=== PATIENT | male | born 1930 | race Caucasian/White ===

== ENCOUNTER 2016-07-12 13:01 | Day surgery (SDC) | payer MEDICARE, BC ==
[~2016-07-12] VITALS: Ht 175.3 cm; Wt 100.0 kg
[~2016-07-12 13:01] MED LIST: ARICEPT5 MG PO; ASPIRIN325 MG PO; BAYER CHEWABLE81 MG PO; CARAFATE1 G PO; CASODEX50 MG PO; COLACE100 MG PO; COUMADIN5 MG PO; DULCOLAX10 MG/SUPP RC; FLOMAX0.4 MG PO; GLIPIZIDE10 MG PO; HEPARIN SOD5000 U/ML SQ; HUMALOG 30100 UNITS/ SC; HYDROCODONE-APA1 TAB PO; HYTRIN5 MG PO; LEVAQUIN500 MG PO; LEVOXYL175 MCG PO; LYRICA50 MG PO; MILK OF MAGNESI30 ML PO; MIRALAX17 GM PO; NAPROSYN500 MG PO; NARCAN INJ0.4 MG/ML IV; NATURAL VEGETA283 G1; OXYCODONE HCL5 MG OR; OXYCONTIN20 MG PO; PERCOCET 5/3251 TA1 PO; PRAVACHOL40 MG PO; PRILOSEC20 MG PO; PROTONIX40 MG PO; SENOKOT-S TABLE1 TAB PO; SYNTHROID50 MCG PO; TYLENOL 325 MG325 MG PO; ULTRAM50 MG PO; VALIUM10 MG; VITAMIN B-1000 MCG/M PO; VITAMIN D31000 UNIT PO; VITAMIN D3400 UNI1 PO; ZANTAC150 MG PO; ZOCOR20 MG PO; ZOCOR40 MG PO; ZOFRAN ODT4 MG/UDTAB PO; ZOLOFT25 MG PO
[2016-07-12 14:46] VITALS: BP 121/68; Ht 175.3 cm; Wt 100.0 kg
--- NOTE | 2016-07-12 15:27 | NUR ---
1525 PROCEDURE TOLERATED WELL. PB 139/72 69 20 98% SAT. WATER SERVED. RELEASED IN .
--- NOTE | 2016-07-14 10:44 | PRO ---
PATIENT:PATRICK HOLDEN MEDICAL RECORD: [id number] : 34 LOCATION:[facility] ADMISSION DATE: 07/12/16 PROCEDURE PERFORMED BY: NESTOR REGAN MD DATE OF PROCEDURE: 07/12/2016 Mr. Holden is an 86-year-old male who is known to this service and has presented for his second lumbar epidural steroid injection. Mr. Holden has had an MRI, which demonstrated degenerative joint disease and herniated disc at 4-5 with foraminal nerve root contracts about the facet in the right foraminal space correlated with a right L4 radiculopathy. The patient relates with his previous lumbar epidural steroid injection done 1 week ago at L4-L5 that his pain was relieved for about 3 days, but then returned. The patient relates that he had marked improvement, but the pain returns. The patient is returning today as per his appointment for repeat lumbar epidural steroid injection. The patient relates today that his pain is about 8/10. The patient requesting lumbar epidural steroid injection and hopefully increased duration of action for pain relief as opposed to his previous LESI. Again, MRI was reviewed as per old record. Procedure was discussed with the patient extensively including risk, benefit of infection, damage to underlying structures and headache. The patient understands risks and accepts, consents form signed. The patient elects to proceed with procedure. It should be noted that the patient is currently on no anticoagulation therapy at this time. The patient was placed in sitting position, Betadine prep and drape. A skin wheal of 1% lidocaine was raised over the L4-L5 interspace, under sterile conditions, L4-L5 interspace was then located. The epidural space was located with a 17-gauge Tuohy needle with loss of resistance technique. A total solution of 0.125% bupivacaine with 80 mg of Depo-Medrol ____ 6 mL was instilled into the epidural space at L4-L5 interspace. The patient related that his pain was almost zero after injection of local anesthetic and steroids. It should also be noted that the patient was not feeling well today. Blood sugar was checked and blister of 146. The patient is known to be diabetic. We discussed the issues with steroid injection. The patient's vital signs were also stable today with a heart rate of 76 and his blood pressure within normal limits and temperature was 97.8. The patient is to go home and rest this afternoon. The patient is to presents in 1 week for his third lumbar epidural steroid injection. TRANSINT:[id number] Voice Confirmation ID: [id number] DOCUMENT ID: [id number] NESTOR REGAN MD at 1044 CC: [id number] DICTATION DATE: 07/12/16 1517 CV RN: 07/12/16 2359 [facility] [place] 07/12/[address] [address]
== END 2016-07-12 15:27 | disposition home or self-care (01) ==
LOC: D.OPS 13:01
DX: M47.896 Other spondylosis, lumbar region (principal); M51.26 Other intervertebral disc displacement, lumbar region

== ENCOUNTER 2016-07-12 16:08 | Emergency (ER) | payer MEDICARE, BC ==
[2016-07-12 18:16] LABS: BASOPHILS 0.1 % (0.0-2.0); EOSINOPHILS 1.1 % (0-7); HEMATOCRIT 44.6 % (42.0-54.0); HEMOGLOBIN 14.8 g/dL (13.5-17.5); IMMATURE GRANULOCYTES 0.3 % (0-5); LYMPHOCYTES 14.9 % (15-50); MCH 30.2 pg (26.0-34.0); MCHC 33.2 g/dL (31.0-37.0); MEAN PLATELET VOLUME 9.8 fL (7.4-10.4); MONOCYTES 10.1 % (2-11); NEUTROPHILS 73.5 % (40-80); PLATELET COUNT 206 10x3/uL (130-400); RDW 12.3 % (11.5-14.5); WBC 9.8 10x3/uL (4.8-10.8)
[2016-07-12 18:27] LABS: ANION GAP 11.8 mmol/L (8-16); CALCIUM 9.4 mg/dL (8.5-10.1); CARBON DIOXIDE 29.5 mmol/L (21.0-32.0); CREATININE - SERUM 1.6 mg/dL (0.6-1.3); POTASSIUM - SERUM 4.3 mmol/L (3.5-5.1)
== END 2016-07-12 20:05 | disposition home or self-care (01) ==
LOC: D.ER 16:08
PROVIDERS: Emergency Medicine Emergency Medical Services
DX: R20.8 Other disturbances of skin sensation (principal); C61 Malignant neoplasm of prostate; K59.00 Constipation, unspecified; R10.9 Unspecified abdominal pain; E11.9 Type 2 diabetes mellitus without complications; F03.90 Unspecified dementia, unspecified severity, without behavioral disturbance, psychotic disturbance, mood disturbance, and anxiety; E78.5 Hyperlipidemia, unspecified; E03.9 Hypothyroidism, unspecified

== ENCOUNTER 2016-07-19 12:14 | Day surgery (SDC) | payer MEDICARE, BC ==
--- NOTE | 2016-07-19 15:24 | NUR ---
1449 PROCEDURE COMPLETE. PT SATINDER WELL. BANDAIDS APPLIED TO INJECTION SITES. BP 109/65, HR 76, RR 18, SAT 96% 1500 PT STATES FEELING GOOD. VS- BP 110/71, HR 75,RR 18, SAT 96%. 1503 PT IS UP AMBULATING IN ROOM AND TALKING WITH DR VELEZ.
--- NOTE | 2016-07-19 15:46 | NUR ---
1535 PT DENIES C/O, STATES FEELS READY FOR DC. REVIEWED DC INSTRUCTIONS WITH PT WHO VERBALIZES UNDERSTANDING. PT ESCOTED TO PRIVATE AUTO VIA WC BY STAFF WITH DRIVING HIM HOME.
== END 2016-07-19 15:35 | disposition home or self-care (01) ==
LOC: D.OPS 12:14
DX: M48.06 Spinal stenosis, lumbar region (principal); M54.16 Radiculopathy, lumbar region; M53.3 Sacrococcygeal disorders, not elsewhere classified

== ENCOUNTER 2017-02-24 12:20 | Inpatient (IN) | payer MEDICARE, BC ==
[~2017-02-24] VITALS: Ht 175.3 cm; Wt 105.2 kg
[~2017-02-24 12:20] MED LIST changes: -GLIPIZIDE10 MG PO; +GLUCOTROL ER2.5 MG PO; -LYRICA50 MG PO; +LYRICA75 MG PO
[2017-02-24 12:57] LABS: BASOPHILS 0.2 % (0-2); HEMATOCRIT 39.3 % (42.0-54.0); HEMOGLOBIN 13.4 g/dL (13.5-17.5); IMMATURE GRANULOCYTES 0.3 % (0-5); LYMPHOCYTES 27.5 % (15-50); MCH 29.5 pg (26.0-34.0); MCHC 34.1 g/dL (31.0-37.0); MCV 86.4 fL (80.0-100.0); MEAN PLATELET VOLUME 9.3 fL (7.4-10.4); MONOCYTES 12.1 % (2-11); NEUTROPHILS 57.9 % (40-80); PLATELET COUNT 183 10x3/uL (130-400); RBC 4.55 10x6/uL (4.20-6.10); RDW 12.9 % (11.5-14.5); WBC 5.9 10x3/uL (4.8-10.8)
[2017-02-24 13:11] LABS: ALBUMIN 3.6 g/dL (3.4-5.0); ALKALINE PHOSPHATASE 76 U/L (46-116); ALT (SGPT) 28 U/L (10-68); BILIRUBIN - TOTAL 0.27 mg/dL (0.2-1.3); CALC OSMOLALITY 284 mosm/kg (275-300); CALCIUM 8.8 mg/dL (8.5-10.1); CARBON DIOXIDE 26.3 mmol/L (21.0-32.0); CHLORIDE - SERUM 104 mmol/L (98-107); CREATININE - SERUM 1.6 mg/dL (0.6-1.3); POTASSIUM - SERUM 3.9 mmol/L (3.5-5.1); PROTEIN - SERUM 7.5 g/dL (6.4-8.2); SODIUM 139 mmol/L (136-145); UREA NITROGEN 30 mg/dL (7-18); eGFR NON AFRICAN AMERICAN 44 mL/min (90-120)
[2017-02-24 13:12] LABS: GLUCOSE 108 mg/dL (74-106)
[2017-02-24 14:03] LABS: CKMB 1.2 U/L (0.0-3.6); CREATINE KINASE 127 UL (21-232); TROPONIN-I < 0.017 ng/mL (0.000-0.060)
--- NOTE | 2017-02-24 16:13 | NUR ---
TRANSFER FROM ER BY W/C. DENISINTED TO ROOM. CALL LIGHT IN REACH. WILL CONT. PLAN OF CARE.
[2017-02-24 16:25] VITALS: BP 149/77; BMI 34.3
[2017-02-24] MEDS ORDERED: SEROQUEL25 MG PO (16:36)
[2017-02-24] MEDS ORDERED: ZOSTRIX HP 0.0730 GM TOPICAL (16:38)
[2017-02-24] MEDS ORDERED: ELIQUIS5 MG PO (16:40)
[2017-02-24] MEDS ORDERED: LIPITOR20 MG PO (16:42)
[2017-02-24] MEDS ORDERED: MULTIPLE VITAMI1 TA1 PO (16:43)
[2017-02-24] MEDS ORDERED: MIRALAX17 GM PO (16:46)
[2017-02-24] MEDS ORDERED: CASODEX50 MG PO (16:47)
[2017-02-24 18:46] LABS: CKMB 1.1 U/L (0.0-3.6); CREATINE KINASE 109 UL (21-232); TROPONIN-I < 0.017 ng/mL (0.000-0.060)
[2017-02-24 19:00] VITALS: BP 112/64
[2017-02-25 02:08] LABS: CREATINE KINASE 101 UL (21-232)
[2017-02-25 02:11] LABS: TROPONIN-I < 0.017 ng/mL (0.000-0.060)
[2017-02-25 04:00] VITALS: BP 104/72
[2017-02-25 07:14] LABS: BASOPHILS 0.2 % (0-2); EOSINOPHILS 4.8 % (0-7); HEMATOCRIT 38.2 % (42.0-54.0); HEMOGLOBIN 12.7 g/dL (13.5-17.5); IMMATURE GRANULOCYTES 0.2 % (0-5); LYMPHOCYTES 28.9 % (15-50); MCH 29.1 pg (26.0-34.0); MCHC 33.2 g/dL (31.0-37.0); MCV 87.4 fL (80.0-100.0); MEAN PLATELET VOLUME 9.5 fL (7.4-10.4); MONOCYTES 12.9 % (2-11); PLATELET COUNT 188 10x3/uL (130-400); RBC 4.37 10x6/uL (4.20-6.10); RDW 13.1 % (11.5-14.5)
[2017-02-25 07:52] LABS: ALBUMIN 3.2 g/dL (3.4-5.0); ALKALINE PHOSPHATASE 82 U/L (46-116); ALT (SGPT) 92 U/L (10-68); AMYLASE - SERUM 59 U/L (25-115); CALC OSMOLALITY 282 mosm/kg (275-300); CALCIUM 8.7 mg/dL (8.5-10.1); CARBON DIOXIDE 28.7 mmol/L (21.0-32.0); CHLORIDE - SERUM 105 mmol/L (98-107); CKMB 0.8 U/L (0.0-3.6); CREATINE KINASE 90 UL (21-232); CREATININE - SERUM 1.4 mg/dL (0.6-1.3); GLUCOSE 120 mg/dL (74-106); LIPASE 278 U/L (73-393); MAGNESIUM - SERUM 2.3 mg/dL (1.8-2.4); PHOSPHOROUS 4.3 mg/dL (2.5-4.9); POTASSIUM - SERUM 4.3 mmol/L (3.5-5.1); PROTEIN - SERUM 6.6 g/dL (6.4-8.2); SODIUM 139 mmol/L (136-145); TROPONIN-I < 0.017 ng/mL (0.000-0.060); UREA NITROGEN 25 mg/dL (7-18); eGFR NON AFRICAN AMERICAN 51 mL/min (90-120)
[2017-02-25 09:19] VITALS: BP 123/52
--- NOTE | 2017-02-25 09:48 | NUR ---
RESP UL ON 02 2L NC. IV PATENT. TELEMETRY SR WITH OCC PVCS. CALL LIGHT IN REACH. WILL CONT. PLAN OF CARE.
[2017-02-25 11:49] VITALS: BP 121/64
--- NOTE | 2017-02-25 11:53 | HP ---
PATIENT: PATRICK BARTH MEDICAL RECORD: [id number] ACCOUNT: [id number] LOCATION:[address] : 32 ADMISSION DATE: 02/24/17 HISTORY AND PHYSICAL EXAMINATION HISTORY OF PRESENT ILLNESS: An 86-year-old male presented to the Emergency Room with 4 days of epigastric abdominal pain, severe radiating up to his chest. Denies fever or chills. Denies nausea or vomiting. Reports normal bowel movements. PAST MEDICAL HISTORY: Significant for cardiovascular disease, extensive vascular disease, chronic constipation, previous bowel obstructions with multiple abdominal surgeries, remote CVA, coagulopathy, hyperlipidemia, diabetes mellitus type 2, hypothyroidism and prostate cancer. CURRENT MEDICATIONS: Casodex 50 mg daily, donepezil 5 mg daily, Flomax 0.4 mg at bedtime. Eliquis 5 mg b.i.d., Lipitor 20 mg at bedtime, terazosin 5 mg daily, aspirin 81 mg daily, Lyrica 75 mg b.i.d., Seroquel 25 mg daily, pantoprazole 40 mg b.i.d., MiraLax 17 grams p.o. daily, glipizide ER 2.5 mg daily, levothyroxine 175 mcg daily, Zostrix topical, vitamin D3 2000 units p.o. q.h.s., vitamin B12 1000 mcg daily , and multivitamin daily. ALLERGIES: PENICILLIN, SULFA, LIDOCAINE, PROCAINE, MEPERIDINE AND BENADRYL. REVIEW OF SYSTEMS: GENERAL: No acute change in weight or appetite. HEENT: No cephalgia, visual changes, tinnitus, epistaxis or dysphagia. CARDIOVASCULAR: Atypical chest pain reportedly radiates from his epigastric pain and pressure. Denies diaphoresis, denies shortness of breath, denies palpitations. PULMONARY: Denies hemoptysis, denies night sweats. GASTROINTESTINAL: Moderate to severe epigastric pain, tenderness is noted above, multiple abdominal surgeries, obstructions, adhesiolysis, reports normal bowel movements. Denies any nausea or vomiting. GENITOURINARY: Denies dysuria. History of prostate cancer on suppressive therapy with Casodex. ENDOCRINE: Denies polyuria, polydipsia, or polyphagia. MUSCULOSKELETAL: No acute changes. Of note, the patient primarily is a patient of Dr. Diaz, but [facility] PHYSICAL EXAMINATION: VITAL SIGNS: Temp 97.9, blood pressure 145/77, heart rate 79, respirations 20, O2 sats 95% room air. GENERAL: Alert and oriented, no present distress at rest. HEENT: Normocephalic, atraumatic. Eyes: Pupils equal, round, reactive. Ears: Canals patent. TMs are intact. Nose: Nares patent without drainage. Throat: No erythema, no exudates. NECK: Supple. No lymphadenopathy, no JVD. HEART: Regular rate and rhythm. No S3, S4, no rub. LUNGS: Clear to auscultation bilaterally. Breathing is nonlabored. ABDOMEN: Soft, mildly obese, moderate to severe epigastric tenderness with guarding, multiple scars from previous abdominal surgeries. Small ventral hernia. EXTREMITIES: Present times 4, nontender. NEUROLOGIC: No appreciable focal deficits. HISTORY AND PHYSICAL [id number] PATRICK BARTH IMAGING: Chest x-ray, no acute changes. LABORATORY DATA: Show a CBC: White count 5.9, hemoglobin 13.4, hematocrit 39.3, platelets 183. Chemistry: Sodium 139, potassium 3.9, chloride 104, bicarb 26.3, BUN 30, creatinine 1.6, glucose 108, calcium is 8.8. AST is 22, ALT is 28. CK 127, CK-MB 1.2, troponin less than 0.017. Albumin 3.6. ASSESSMENT AND PLAN: 1. Moderate to severe epigastric pain with guarding, multiple risk factors, prior obstructions, history of coagulopathy. We will obtain CT of the abdomen with oral contrast only due to renal function. 2. Cardiovascular disease. Psycho cardiac enzymes times 3. First set negative. Symptoms are atypical for cardiovascular disease, but again with multiple risk factors. 3. Gastroesophageal reflux disease. Continue home medications. 4. Hypothyroidism. Continue current medications. 5. Diabetes. We will hold low dose Glucotrol. All studies are pending. Cover with low resistant sliding scale insulin. 6. Prostate cancer. Continue Casodex. 7. EKG reviewed, normal sinus rhythm, rate 74, nonspecific T-wave changes. Cardiology consulted to the ER, supportive care. TRANSINT:[id number] Voice Confirmation ID: [id number] DOCUMENT ID: [id number] ADITYA ROSE DO at 1153 CC: [id number] DICTATION DATE: 02/24/171825 JOURNEYMAN OPERATOR ASSISTANT: 02/24/171926 ADM IN [facility] [address] [id number]
[2017-02-25 15:44] VITALS: BP 124/70
[2017-02-25 20:00] VITALS: BP 117/62
--- NOTE | 2017-02-25 20:00 | NUR ---
PT RESTING IN BED. ALERT/ORIENTED WITH O2 @ 2L/NC. SR PER TELEMETRY. LEFT WRIST PIV WITH NS @ 75ML/HR. PT TEACHING ON NPO AFTER MIDNIGHT FOR US OF ABDOMEN IN AM. SEE ASSESSMENT. CPOC.
--- NOTE | 2017-02-25 21:14 | NUR ---
BEDTIME MEDS GIVEN.
[2017-02-26 01:15] VITALS: BP 115/62
[2017-02-26 04:30] VITALS: BP 123/72
[2017-02-26 04:51] LABS: BASOPHILS 0.1 % (0-2); EOSINOPHILS 4.8 % (0-7); HEMATOCRIT 38.1 % (42.0-54.0); HEMOGLOBIN 12.8 g/dL (13.5-17.5); IMMATURE GRANULOCYTES 0.3 % (0-5); LYMPHOCYTES 27.3 % (15-50); MCH 29.4 pg (26.0-34.0); MCHC 33.6 g/dL (31.0-37.0); MCV 87.6 fL (80.0-100.0); MEAN PLATELET VOLUME 9.4 fL (7.4-10.4); MONOCYTES 11.8 % (2-11); NEUTROPHILS 55.7 % (40-80); PLATELET COUNT 206 10x3/uL (130-400); RBC 4.35 10x6/uL (4.20-6.10); RDW 12.8 % (11.5-14.5); WBC 6.7 10x3/uL (4.8-10.8)
[2017-02-26 05:16] LABS: ALBUMIN 3.2 g/dL (3.4-5.0); ANION GAP 10.4 mmol/L (8-16); BILIRUBIN - TOTAL 0.36 mg/dL (0.2-1.3); CALCIUM 8.7 mg/dL (8.5-10.1); CARBON DIOXIDE 27.5 mmol/L (21.0-32.0); CREATININE - SERUM 1.4 mg/dL (0.6-1.3); POTASSIUM - SERUM 3.9 mmol/L (3.5-5.1); PROTEIN - SERUM 6.7 g/dL (6.4-8.2)
[2017-02-26] MEDS ORDERED: ZOSTRIX HP 0.0730 GM TOPICAL (06:23)
[2017-02-26 10:33] VITALS: BP 153/82
[2017-02-26 12:00] VITALS: BP 118/71
[2017-02-26 14:36] VITALS: Ht 175.3 cm; Wt 105.2 kg
[2017-02-26 17:43] VITALS: BP 120/68
[2017-02-26 20:00] VITALS: BP 127/66
--- NOTE | 2017-02-26 20:00 | NUR ---
PT RESTING IN BED WITH NO DISTRESS. ALERT/ORIENTED. NS @ 75ML/HR INFUSING TO LEFT WRIST. O2 @ 2L/NC WITH NONLABORED RESPIRATIONS. SR PER TELEMETRY. SEE ASSESSMENT. CPOC.
--- NOTE | 2017-02-27 04:53 | NUR ---
AM LABWORK DRAWN. PT REMAINS NPO FOR EGD THIS AM. ALERT/ORIENTED. DENIES ANY NEEDS. CPOC.
[2017-02-27 05:52] LABS: BASOPHILS 0.1 % (0-2); EOSINOPHILS 5.1 % (0-7); HEMATOCRIT 37.1 % (42.0-54.0); HEMOGLOBIN 12.6 g/dL (13.5-17.5); IMMATURE GRANULOCYTES 0.1 % (0-5); MCH 29.7 pg (26.0-34.0); MCV 87.5 fL (80.0-100.0); MEAN PLATELET VOLUME 9.4 fL (7.4-10.4); MONOCYTES 10.2 % (2-11); NEUTROPHILS 56.5 % (40-80); PLATELET COUNT 206 10x3/uL (130-400); RBC 4.24 10x6/uL (4.20-6.10); RDW 12.8 % (11.5-14.5); WBC 6.7 10x3/uL (4.8-10.8)
[2017-02-27 06:19] LABS: ALBUMIN 3.2 g/dL (3.4-5.0); ANION GAP 14.1 mmol/L (8-16); BILIRUBIN - TOTAL 0.4 mg/dL (0.2-1.3); CALCIUM 8.6 mg/dL (8.5-10.1); CARBON DIOXIDE 24.7 mmol/L (21.0-32.0); CREATININE - SERUM 1.4 mg/dL (0.6-1.3); POTASSIUM - SERUM 3.8 mmol/L (3.5-5.1); PROTEIN - SERUM 6.6 g/dL (6.4-8.2)
--- NOTE | 2017-02-27 07:50 | NUR ---
RESTING QUIETLY RESP UNLABORED CPAP INTACT NAD NOTED
[2017-02-27 09:25] VITALS: BP 119/56
--- NOTE | 2017-02-27 11:43 | NUR ---
FSBS 124
[2017-02-27 16:29] VITALS: BP 130/71
--- NOTE | 2017-02-27 17:25 | NUR ---
FBS 116
[2017-02-27 17:59] VITALS: BP 124/97
[2017-02-27 20:00] VITALS: BP 124/63
[2017-02-28 01:10] VITALS: BP 119/63
[2017-02-28] MEDS ORDERED: CARAFATE1 G PO (07:06)
[2017-02-28 08:32] VITALS: BP 104/69
--- NOTE | 2017-02-28 10:44 | NUR ---
Patient Name: PATRICK BARTH Admission Status: ER Accout number: [id number] Admission Date: 02-27-2017 : 1930 Admission Diagnosis: Attending: ADITYA ROSE Current LOS: 1 Anticipated DC Date: 02-28-2017 Planned Disposition: Home Primary Insurance: MEDICARE A & B Discharge Planning Comments: * Is the patient Alert and Oriented? Yes 0 * How many steps to enter\exit or inside your home? NONE 0 * PCP DR. SMITH 0 * Pharmacy [facility] ([place], [place] 0 * Preadmission Environment Home with Family 0 * ADLs Independent 0 * Equipment Cane Glucometer Walker 0 * Other Equipment [facility] - MEDICAL EQUIPMENT PROVIDER 0 * List name and contact numbers for known caregivers / representatives who currently or will assist patient after discharge: WILTON ORELLANA, SPOUSE, 0 * Community resources currently utilized None 0 * Please name any agencies selected above. NONE 0 * Additional services required to return to the preadmission environment? No 0 * Can the patient safely return to the preadmission environment? Yes 0 * Has this patient been hospitalized within the prior 30 days at any hospital? No 0 CM MET WITH PT IN ROOM TO DISCUSS DISCHARGE PLANNING AND NEEDS. PT REPORTS LIVING AT HOME INDEPENDENTLY WITH HIS . PT HAS CANE, GLUCOMET[facility] AND NO OUTSIDE SERVICES ASSISTING IN THE HOME. CM DISCUSSED AVAILABILITY OF HOME HEALTH, REHAB SERVICES AND MEDICAL EQUIPMENT. PT DENIES DISCHARGE NEEDS, REPORTS HIS IS ON THE WAY TO PICK HIM UP FOR DISCHARGE HOME TODAY. USED EQUIPMENT SALES REPRESENTATIVE NOTIFIED. Palliative Care Nurse Practitioner: Chato Olson
--- NOTE | 2017-02-28 11:52 | NUR ---
IV AND TELEMETRY DCD. DC PLANS GIVEN. UNDERSTANDING VOICED. ESCORTED TO CAR BY W/C.
== END 2017-02-28 11:53 | disposition home or self-care (01) | DRG 392 ==
LOC: D.ER 12:20 → OBSVTIME 14:48 → D.M2 14:48
PROVIDERS: Emergency Medicine; Family Medicine; Internal Medicine Gastroenterology; ADMIT Family Medicine
PROC: 0DB68ZX Excision of Stomach, Via Natural or Artificial Opening Endoscopic, Diagnostic (ICD-10-PCS; 2017-02-27)
PROC: 0DB58ZX Excision of Esophagus, Via Natural or Artificial Opening Endoscopic, Diagnostic (ICD-10-PCS; principal; 2017-02-27 15:30)
DX: K21.9 Gastro-esophageal reflux disease without esophagitis (principal); K44.9 Diaphragmatic hernia without obstruction or gangrene; K29.70 Gastritis, unspecified, without bleeding; E03.9 Hypothyroidism, unspecified; E11.9 Type 2 diabetes mellitus without complications; Z79.4 Long term (current) use of insulin; K59.09 Other constipation; Z86.73 Personal history of transient ischemic attack (TIA), and cerebral infarction without residual deficits; E78.5 Hyperlipidemia, unspecified

== ENCOUNTER → 2017-03-20 13:25 | Outpatient (CLI) | payer MEDICARE, BC ==
[2017-02-26 14:36] VITALS: BMI 34.2
[~2017-03-20 13:25] MED LIST changes: +ELIQUIS5 MG PO; +LIPITOR20 MG PO; +MULTIPLE VITAMI1 TA1 PO; +SEROQUEL25 MG PO; +ZOSTRIX HP 0.0730 GM TOPICAL
== END | disposition home or self-care (01) ==
LOC: D.CT 13:25
DX: R07.9 Chest pain, unspecified (principal)

== ENCOUNTER 2017-04-11 10:14 | Day surgery (SDC) | payer MEDICARE, BC ==
[2017-04-11 12:58] VITALS: BP 156/89; BMI 39.2
--- NOTE | 2017-04-11 13:07 | NUR ---
1030-PATIENT TO ROOM, DR VELEZ PAGED. 1045-PATIENT NOTIFIED DR VELEZ WILL BE HERE IN ABOUT 30 MINUTES. 1120-DR VELEZ HERE. HISTORY AND PHYSICAL COMPLETED. PROCEDURE, RISKS AND BENEFITS REVIEWED AND OTHER TREATMENT OPTIONS. PATIENT ELECTS TO PROCEED. 1150-TIME OUT. 1154-START 1155-END 1156-BANDAID TO INJECTION SITE. 1215-DISCHARGE INSTRUCTIONS REVIEWED. PATIENT AMBULATES WITH STEADY GAIT. STATES HELPING ALREADY. 1220-ESCORTED AMBULATORY PER REQUEST TO VEHICLE- IS DRIVING.
== END 2017-04-11 12:20 | disposition home or self-care (01) ==
LOC: D.OPS 10:14
DX: M54.16 Radiculopathy, lumbar region (principal); M51.36 Other intervertebral disc degeneration, lumbar region

== ENCOUNTER 2018-10-12 13:20 | Inpatient (IN) | payer MEDICARE, BC ==
[~2018-10-12] VITALS: Ht 175.3 cm; Wt 109.0 kg
[2018-10-12 00:16] VITALS: BP 127/69
[2018-10-12] MEDS ORDERED: ALBUTEROL SULF8.5 GM INH (13:28)
[2018-10-12] MEDS ORDERED: VITAMIN D31000 UNIT PO (13:29)
[2018-10-12] MEDS ORDERED: OPTIVE SENSITI1 EACH EACH EYE (13:29)
[2018-10-12] MEDS ORDERED: FLUTICASONE PRO16 GM IH (13:30)
[2018-10-12] MEDS ORDERED: HYDROCODON-ACE1 EAC7 PO (13:30)
[2018-10-12] MEDS ORDERED: ZOLOFT25 MG PO (13:31)
[2018-10-12 14:15] LABS: BASOPHILS 0.1 % (0-2); EOSINOPHILS 2.8 % (0-7); HEMATOCRIT 41.2 % (42.0-54.0); HEMOGLOBIN 14.1 g/dL (13.5-17.5); IMMATURE GRANULOCYTES 0.2 % (0-5); LYMPHOCYTES 27.8 % (15-50); MCH 30.2 pg (26.0-34.0); MCHC 34.2 g/dL (31.0-37.0); MCV 88.2 fL (80.0-100.0); MEAN PLATELET VOLUME 9.3 fL (7.4-10.4); MONOCYTES 10.8 % (2-11); NEUTROPHILS 58.3 % (40-80); PLATELET COUNT 220 10x3/uL (130-400); RBC 4.67 10x6/uL (4.20-6.10); WBC 8.4 10x3/uL (4.8-10.8)
[2018-10-12 14:22] LABS: ALBUMIN 3.6 g/dL (3.4-5.0); ALKALINE PHOSPHATASE 70 U/L (46-116); ALT (SGPT) 34 U/L (10-68); BILIRUBIN - TOTAL 0.31 mg/dL (0.2-1.3); CALC OSMOLALITY 280 mosm/kg (275-300); CALCIUM 9.2 mg/dL (8.5-10.1); CARBON DIOXIDE 27.9 mmol/L (21.0-32.0); CHLORIDE - SERUM 102 mmol/L (98-107); CREATININE - SERUM 1.3 mg/dL (0.6-1.3); GLUCOSE 103 mg/dL (74-106); POTASSIUM - SERUM 4.1 mmol/L (3.5-5.1); PROTEIN - SERUM 7.4 g/dL (6.4-8.2); SODIUM 138 mmol/L (136-145); UREA NITROGEN 26 mg/dL (7-18); eGFR NON AFRICAN AMERICAN 55 mL/min (90-120)
[2018-10-12 14:25] LABS: APTT 34.1 SECONDS (22.8-39.4); INR 1.03 (0.85-1.17)
[2018-10-12 14:32] LABS: CKMB 1.1 U/L (0.0-3.6); CREATINE KINASE 102 UL (21-232); MAGNESIUM - SERUM 2.3 mg/dL (1.8-2.4); TROPONIN-I < 0.017 ng/mL (0.000-0.060)
[2018-10-12 15:24] LABS: AMYLASE - SERUM 66 U/L (25-115); LIPASE 270 U/L (73-393)
[2018-10-12 16:46] VITALS: BP 117/43
[2018-10-12 17:21] VITALS: BP 109/51
[2018-10-12 17:48] VITALS: BMI 35.2
--- NOTE | 2018-10-12 17:56 | NUR ---
ASSESSMENT COMPLETE RESP UNLABORED AAOX4 SALINE LOCK LAC INTACT WITH OCCLUSIVE DRSG SITE FREE OF REDNESS OR EDEMA PT DENIES ANY DISCOMFORT AT THIS TIME
--- NOTE | 2018-10-12 19:41 | NUR ---
RECEIVED REPORT, WILL ASSUME CARE OF PT, PT IS WATCHING TV, DENIES ANY NEEDS, BED IS LOW, SRX2, CALL LIGHT IN REACH, WILL CONTINUE PLAN OF CARE
[2018-10-13] VITALS: BP 104/58
--- NOTE | 2018-10-13 01:52 | NUR ---
PT SLEEPING NO DISTRESS NOTICE, CALL LIGHT IN REACH, WILL CONTINUE PLAN OF CARE
--- NOTE | 2018-10-13 02:01 | NUR ---
I have reviewed this patient and I concur with the Shift Assessment completed by the Licensed Practical Nurse today this shift.
[2018-10-13 03:33] LABS: BASOPHILS 0.2 % (0-2); EOSINOPHILS 5.2 % (0-7); HEMATOCRIT 39.1 % (42.0-54.0); IMMATURE GRANULOCYTES 0.3 % (0-5); LYMPHOCYTES 32.6 % (15-50); MCH 29.5 pg (26.0-34.0); MCHC 33.2 g/dL (31.0-37.0); MCV 88.9 fL (80.0-100.0); MEAN PLATELET VOLUME 9.2 fL (7.4-10.4); MONOCYTES 14.9 % (2-11); NEUTROPHILS 46.8 % (40-80); PLATELET COUNT 184 10x3/uL (130-400); RDW 12.9 % (11.5-14.5)
[2018-10-13 03:39] LABS: WBC 5.8 10x3/uL (4.8-10.8)
[2018-10-13 04:00] VITALS: BP 109/71
[2018-10-13 04:07] LABS: ALBUMIN 3.1 g/dL (3.4-5.0); ALKALINE PHOSPHATASE 81 U/L (46-116); BILIRUBIN - TOTAL 0.37 mg/dL (0.2-1.3); CALC OSMOLALITY 280 mosm/kg (275-300); CALCIUM 8.2 mg/dL (8.5-10.1); CARBON DIOXIDE 25.4 mmol/L (21.0-32.0); CHLORIDE - SERUM 104 mmol/L (98-107); CREATININE - SERUM 1.4 mg/dL (0.6-1.3); GLUCOSE 129 mg/dL (74-106); LIPASE 1014 U/L (73-393); POTASSIUM - SERUM 4.2 mmol/L (3.5-5.1); PROTEIN - SERUM 6.6 g/dL (6.4-8.2); SODIUM 138 mmol/L (136-145); UREA NITROGEN 21 mg/dL (7-18); eGFR NON AFRICAN AMERICAN 51 mL/min (90-120)
[2018-10-13 04:09] LABS: ALT (SGPT) 95 U/L (10-68); AMYLASE - SERUM 153 U/L (25-115); TROPONIN-I < 0.017 ng/mL (0.000-0.060)
[2018-10-13] MEDS ORDERED: SYNTHROID50 MCG PO (06:50)
--- NOTE | 2018-10-13 07:15 | NUR ---
ASSESSMENT COMPLETED. ALERT AND ORIENTED.TELEMERTY SHOWS SR. WITH OCC PVCS. LEFT AC SL. ON ROOM AIR. DENIES ANY NEEDS. WILL MONITOR
[2018-10-13 08:20] VITALS: BP 109/61
[2018-10-13 12:10] VITALS: BP 115/68
--- NOTE | 2018-10-13 12:39 | NUR ---
PT SITTING ON SIDE OF BED FOR DIET. DENIES ANY NEEDS. WILL MONITOR
--- NOTE | 2018-10-13 14:40 | NUR ---
I have reviewed this patient and I concur with the Shift Assessment completed by the Licensed Practical Nurse today this shift.
[2018-10-13 14:52] VITALS: BP 112/58
--- NOTE | 2018-10-13 18:15 | NUR ---
UP TO BR. STATES HE HAD A SM BM AFTER DULCOLAX GIVEN. TELEMERTY SHOWSSR. WILL MONITOR
[2018-10-13 20:38] VITALS: BP 129/63
[2018-10-14 01:51] VITALS: BP 114/73
[2018-10-14 05:41] VITALS: BP 121/71
[2018-10-14 06:51] LABS: BASOPHILS 0.3 % (0-2); EOSINOPHILS 5.7 % (0-7); HEMATOCRIT 37.6 % (42.0-54.0); HEMOGLOBIN 12.7 g/dL (13.5-17.5); IMMATURE GRANULOCYTES 0.2 % (0-5); LYMPHOCYTES 31.2 % (15-50); MCH 29.8 pg (26.0-34.0); MCHC 33.8 g/dL (31.0-37.0); MCV 88.3 fL (80.0-100.0); MEAN PLATELET VOLUME 9.4 fL (7.4-10.4); MONOCYTES 12.2 % (2-11); NEUTROPHILS 50.4 % (40-80); PLATELET COUNT 189 10x3/uL (130-400); RBC 4.26 10x6/uL (4.20-6.10); RDW 12.9 % (11.5-14.5); WBC 6.1 10x3/uL (4.8-10.8)
[2018-10-14 07:13] LABS: ALBUMIN 3.1 g/dL (3.4-5.0); ANION GAP 11.2 mmol/L (8-16); BILIRUBIN - DIRECT 0.11 mg/dL (0.00-0.30); BILIRUBIN - INDIRECT 0.26 mg/dL (0.00-1.00); BILIRUBIN - TOTAL 0.37 mg/dL (0.2-1.3); CALCIUM 8.5 mg/dL (8.5-10.1); CARBON DIOXIDE 26.7 mmol/L (21.0-32.0); CREATININE - SERUM 1.3 mg/dL (0.6-1.3); MAGNESIUM - SERUM 2.3 mg/dL (1.8-2.4); POTASSIUM - SERUM 3.9 mmol/L (3.5-5.1); PROTEIN - SERUM 6.5 g/dL (6.4-8.2)
[2018-10-14 08:18] VITALS: BP 119/78
--- NOTE | 2018-10-14 09:38 | NUR ---
ASSESSMENT DONE. DENIES NEEDS
--- NOTE | 2018-10-14 10:53 | NUR ---
I have reviewed this patient and I concur with the Shift Assessment completed by the Licensed Practical Nurse today this shift.
[2018-10-14 13:08] VITALS: BP 135/63
--- NOTE | 2018-10-14 19:30 | NUR ---
RECEIVED REPORT, WILL ASSUME CARE OF PT, DENIES ANY NEEDS AT THIS TIME, BED IS LOW, SRX2, CALL LIGHT IN REACH, WILL CONTINUE PLAN OF CARE
--- NOTE | 2018-10-14 20:30 | NUR ---
DONNA DE LOS SANTOS STARTED 20G. IV IN NyasiaHAND
[2018-10-14 21:33] VITALS: BP 128/60
[2018-10-15 01:15] VITALS: BP 115/55
--- NOTE | 2018-10-15 05:27 | NUR ---
I have reviewed this patient and I concur with the Shift Assessment completed by the Licensed Practical Nurse today this shift.
[2018-10-15 05:30] LABS: BASOPHILS 0.1 % (0-2); EOSINOPHILS 5.1 % (0-7); HEMATOCRIT 38.7 % (42.0-54.0); HEMOGLOBIN 13.1 g/dL (13.5-17.5); IMMATURE GRANULOCYTES 0.4 % (0-5); MCHC 33.9 g/dL (31.0-37.0); MCV 88.6 fL (80.0-100.0); MONOCYTES 10.9 % (2-11); NEUTROPHILS 54.5 % (40-80); PLATELET COUNT 224 10x3/uL (130-400); RBC 4.37 10x6/uL (4.20-6.10); RDW 12.8 % (11.5-14.5); WBC 6.8 10x3/uL (4.8-10.8)
[2018-10-15 06:11] LABS: ALBUMIN 3.2 g/dL (3.4-5.0); BILIRUBIN - DIRECT 0.08 mg/dL (0.00-0.30); BILIRUBIN - INDIRECT 0.4 mg/dL (0.00-1.00); BILIRUBIN - TOTAL 0.48 mg/dL (0.2-1.3); CALCIUM 8.4 mg/dL (8.5-10.1); CARBON DIOXIDE 25.8 mmol/L (21.0-32.0); CREATININE - SERUM 1.3 mg/dL (0.6-1.3); PROTEIN - SERUM 6.6 g/dL (6.4-8.2)
[2018-10-15 06:19] VITALS: BP 115/45
[2018-10-15 06:56] LABS: POTASSIUM - SERUM 3.8 mmol/L (3.5-5.1)
[2018-10-15 08:11] VITALS: BP 126/64
--- NOTE | 2018-10-15 11:00 | NUR ---
TO RADIOLOGY FOR MRI OF ABDOMEN.
--- NOTE | 2018-10-15 11:15 | NUR ---
TO RADIOLOGY FOR MRI ABD.
--- NOTE | 2018-10-15 12:02 | NUR ---
RETURNS FROM RADIOLOGY.
[2018-10-15 12:23] VITALS: Ht 175.3 cm; Wt 109.0 kg
--- NOTE | 2018-10-15 12:38 | NUR ---
WILTON ( PATIENT GIRLFIRED) TO CALL AND ASK FOR UPDATES. PATIENT GAVE ME PERMISSION TO SPEAK TO HER.
[2018-10-15 14:22] VITALS: BP 122/68
--- NOTE | 2018-10-15 14:38 | NUR ---
LAYING ON LEFT SIDE WITH EYES CLOSED, RESP ARE EVEN. CALL LIGHT IN USE.
--- NOTE | 2018-10-15 19:30 | NUR ---
PT RESTING IN BED. AAO, DENIES ANY NEEDS. NO S/S OF DISTRESS. NAME AND DATE PLACED ON BOARD. PT WILL CALL FOR ASSIST WHEN NEEDED. WILL CPOC
[2018-10-15 20:00] VITALS: BP 117/70
--- NOTE | 2018-10-15 20:59 | NUR ---
PT IS NOW NPO AFTER MIDNIGHT. VERBALIZED UNDERSTANDING. CONSENTS SIGNED AND IN THE CHART. PT DENIES ANY QUESTIONS OR CONCERNS. PT WILL CALL FOR ASSIST WHEN NEEDED. WILL CPOC
[2018-10-15 23:55] VITALS: BP 122/53
--- NOTE | 2018-10-16 00:30 | NUR ---
SMALL AMOUNT OF PAIN IN ABDOMEN, LEFT UPPER QUAD. NORCO GIVEN FOR PAIN. PT NPO AFTER MIDNIGHT. NORCO GIVEN WITH SIP OF WATER. PT DENIES ANY QUESTIONS OR CONCERNS. WILL CALL FOR ASSIST WHEN NEEDED. WILL CPOC
--- NOTE | 2018-10-16 02:18 | NUR ---
PT ASLEEP. RESP EVEN AND UNLABORED. NO S/S OF DISTRESS. WILL CPOC
[2018-10-16 04:31] VITALS: BP 122/66
--- NOTE | 2018-10-16 05:53 | NUR ---
MORNING SYNTHROID GIVEN WITH A SIP OF WATER. LINZESS NOT GIVEN DUE TO EGD THIS MORNING. PT DENIES ANY NEEDS. NO S/S OF DISTRESS. PT WILL CALL FOR ASSIST WHEN NEEDED. WILL CPOC
[2018-10-16 06:42] LABS: ALBUMIN 3.5 g/dL (3.4-5.0); ANION GAP 12.4 mmol/L (8-16); BILIRUBIN - TOTAL 0.53 mg/dL (0.2-1.3); CALCIUM 8.7 mg/dL (8.5-10.1); CARBON DIOXIDE 24.6 mmol/L (21.0-32.0); CREATININE - SERUM 1.3 mg/dL (0.6-1.3); PROTEIN - SERUM 6.5 g/dL (6.4-8.2)
[2018-10-16 07:22] LABS: BASOPHILS 0.1 % (0-2); EOSINOPHILS 3.2 % (0-7); HEMATOCRIT 39.1 % (42.0-54.0); HEMOGLOBIN 13.2 g/dL (13.5-17.5); IMMATURE GRANULOCYTES 0.3 % (0-5); LYMPHOCYTES 28.7 % (15-50); MCH 29.7 pg (26.0-34.0); MCHC 33.8 g/dL (31.0-37.0); MCV 87.9 fL (80.0-100.0); MEAN PLATELET VOLUME 9.9 fL (7.4-10.4); MONOCYTES 10.8 % (2-11); NEUTROPHILS 56.9 % (40-80); PLATELET COUNT 209 10x3/uL (130-400); RBC 4.45 10x6/uL (4.20-6.10); RDW 12.9 % (11.5-14.5); WBC 7.3 10x3/uL (4.8-10.8)
--- NOTE | 2018-10-16 07:57 | NUR ---
GI LAB HERE TO TAKE PT NOW. PIV WAS LEAKING, PRE-OP MEDICATIONS GIVEN WHEN GI LAB SHOWED UP. GI LAB STATES THEY WILL RESITE. PT LEFT FLOOR NO CURRENT NEEDS.
[2018-10-16] MEDS ORDERED: LINZESS145 MCG PO (08:26)
[2018-10-16] MEDS ORDERED: CARAFATE1 G PO (08:26)
--- NOTE | 2018-10-16 09:15 | NUR ---
PT BACK FROM PROCEDURE AWAKE A&O. PT INQUIRING ABOUT WHEN HE MIGHT DISCHARGE. PRIMARY SIGNED OFF AND SAID "OKAY IF OKAY WITH GI" WILL PAGE TO FIND OUT. VSS AND BEING MONITERED PER POST PROCEDURE PROTOCOL. PSYCHOLOGICAL SCIENCE PROFESSOR AT BEDSIDE TO DO HIS MORNING MEDICATIONS NOW THAT HE IS NO LONGER NPO. PTS R.HAND PIV WAS REMOVED DURING PROCEDURE AND NEW R.WRIST PIV IN PLACE AND SL. NO CURRENT NEEDS AT THIS. WILL CTM.
[2018-10-16 12:17] VITALS: BP 111/70
--- NOTE | 2018-10-16 14:11 | NUR ---
PT GOING TO BE DISCHARGED. D/C PTS R.WRIST PIV WITH CATHETER TIP FULLY INTACT. PT SITTING UP IN BED RESTING QUIETLY WITH FIANCE AT BEDSIDE. PT STATES HE IS FEELING GOOD AND DENIES ANY PAIN OR NEEDS. WAITING ON DISCHARGE PAPERS. WILL CTM.
--- NOTE | 2018-10-16 14:52 | NUR ---
DISCHARGE TEACHING PROVIDED AND PAPERS SIGNED. PT VERBALIZED UNDERSTANDING AND DENIES ANY QUESTIONS OR CONCERNS. ALL BELONGINGS COLLECTED. PT READY TO LEAVE NO FURTHER NEEDS.
--- NOTE | 2018-10-16 17:16 | MORECARE ---
CASE MANAGEMENT DISCHARGE SUMMARY PATIENT: PATRICK BARTH UNIT: [id number] ADM DATE: 10/14/18 AGE: 88 : 32 SEX: M ROOM/BED: D.2121 AUTHOR: ALYSA,DOC PHYSICIAN: REFERRING PHYSICIAN: SIERRA SANDY MD DATE OF SERVICE: 10/16/18 Discharge Plan Patient Name: PATRICK BARTH Facility[facility]:[place] : 1930 Planned Disposition: Home Anticipated Discharge Date: 10/16/18 Discharge Date: 10/16/2018 Expected LOS: 2 Initial Reviewer: [email or web address] Initial Review Date: 10/16/2018 Generated: 10/16/18 6:16 pm Comments DCP- Discharge Planning Updated by [email or web address]: Chato Olson on 10/16/18 4:[address] Patient Name: PATRICK BARTH Admission Status: ER Accout number: [id number] Admission Date: 10-14-2018 : 1930 Admission Diagnosis: Attending: DU, Current LOS: 2 Anticipated DC Date: 10-16-2018 Planned Disposition: Home Primary Insurance: MEDICARE A & B Discharge Planning Comments: CM MET WITH PT IN ROOM TO DISCUSS DISCHARGE PLANNING AND NEEDS. PT REPORTS LIVING AT HOME INDEPENDENTLY WITH HIS AND THEN REPORTS THEY AREN'T BUT MIGHT WELL BE. PT HAS CANE AND WALKER FROM [facility]. PT HAS NO OUTSIDE SERVICES ASSISTING IN THE HOME. CM DISCUSSED AVAILABILITY OF HOME HEALTH, REHAB SERVICES AND MEDICAL EQUIPMENT. PT DENIES DISCHARGE NEEDS, REPORTS HIS WILL PICK HIM UP FOR DISCHARGE HOME TODAY CONFERENCE SERVICE COORDINATOR NURSE NOTIFIED Laundry Presser: Chato Olson DCPIA - Discharge Planning Initial Assessment Updated by [email or web address]: Chato Olson on 10/16/18 5:13 pm * Is the patient Alert and Oriented? Yes * How many steps to enter\exit or inside your home? NONE * PCP DR. SMITH * Pharmacy [facility] * Preadmission Environment Home with Family * ADLs Independent * Equipment Cane Walker * Other Equipment [facility] - PROVIDER * List name and contact numbers for known caregivers / representatives who currently or will assist patient after discharge: WILTON RAYDITH, SPOUSE, * Verbal permission to speak to the caregivers and representatives has been obtained from the patient. N/A * Community resources currently utilized None * Please name any agencies selected above. NONE * Additional services required to return to the preadmission environment? No * Can the patient safely return to the preadmission environment? Yes * Has this patient been hospitalized within the prior 30 days at any hospital? No Patient Name: PATRICK BARTH Page [phone] at 1716 All edits/amendments must be made on the electronic document DICTATION DATE: 10/16/181714 SCALLOP CUTTER MACHINE: TASIA 10/16/181714 RPT#: [id number] DC DATE:10/16/18 STATUS: DIS IN [facility] [address] [place] [address] END OF REPORT
== END 2018-10-16 15:46 | disposition home or self-care (01) | DRG 381 ==
LOC: D.ER 13:20 → D.EDHOLD 16:42 → OBSVTIME 16:43 → D.M2 17:14 → D.SDCHOLD 10-14 10:28 → D.M2 10-14 10:46 → D.SDCHOLD 10-14 10:47 → D.M2 10-14 10:51 → D.SDCHOLD 10-16 15:14 → D.M2 10-16 15:16
PROVIDERS: Family Medicine; Internal Medicine Gastroenterology; Internal Medicine Nephrology; ADMIT Family Medicine; ATTEND Family Medicine
PROC: 0DB68ZX Excision of Stomach, Via Natural or Artificial Opening Endoscopic, Diagnostic (ICD-10-PCS; principal; 2018-10-16 08:14)
DX: K22.10 Ulcer of esophagus without bleeding (principal); N17.9 Acute kidney failure, unspecified; K21.9 Gastro-esophageal reflux disease without esophagitis; K44.9 Diaphragmatic hernia without obstruction or gangrene; K29.70 Gastritis, unspecified, without bleeding; K31.7 Polyp of stomach and duodenum; R07.89 Other chest pain; D64.9 Anemia, unspecified; K59.00 Constipation, unspecified; I10 Essential (primary) hypertension; E11.9 Type 2 diabetes mellitus without complications; I25.10 Atherosclerotic heart disease of native coronary artery without angina pectoris; E03.9 Hypothyroidism, unspecified; N40.0 Benign prostatic hyperplasia without lower urinary tract symptoms; F03.90 Unspecified dementia, unspecified severity, without behavioral disturbance, psychotic disturbance, mood disturbance, and anxiety